=== PATIENT | male | born 1935 | race Two or more races ===

== ENCOUNTER 2017-03-30 18:01 | Emergency (ER) | payer OTHER ==
[~2017-03-30] VITALS: Ht 177.8 cm; Wt 95.5 kg
[2017-03-30] MEDS ORDERED: COLCHICINE 0.6 MG TABLET PO ONE (20:00)
[2017-03-30] MEDS ORDERED: HYDROCODONE/ACETAMINOPHEN 5-325 MG TABLET PO ONE (20:00)
[2017-03-30 20:56] VITALS: BP 130/75
== END 2017-03-30 20:56 | disposition home or self-care (01) ==
LOC: EMS 18:04
DX: M10.9 Gout, unspecified (principal); M79.674 Pain in right toe(s); I10 Essential (primary) hypertension
CPT/HCPCS: 99283

== ENCOUNTER 2019-02-06 20:08 | Emergency (ER) | payer MEDICARE, OTHER ==
[~2019-02-06] VITALS: Ht 185.4 cm; Wt 97.3 kg
[2019-02-06 20:56] VITALS: BP 125/80
[2019-02-06] MEDS ORDERED: IBUPROFEN 600 MG TABLET PO ONE (21:15)
== END 2019-02-06 23:21 | disposition home or self-care (01) ==
LOC: EMS 20:09
DX: S39.012A Strain of muscle, fascia and tendon of lower back, initial encounter (principal); M76.72 Peroneal tendinitis, left leg; M76.71 Peroneal tendinitis, right leg; M76.62 Achilles tendinitis, left leg; M76.61 Achilles tendinitis, right leg; M10.9 Gout, unspecified; F17.210 Nicotine dependence, cigarettes, uncomplicated; X58.XXXA Exposure to other specified factors, initial encounter; Y93.89 Activity, other specified; Y92.89 Other specified places as the place of occurrence of the external cause; Y99.8 Other external cause status
CPT/HCPCS: 99406